=== PATIENT | female | born 1980 | race Caucasian/White ===

== ENCOUNTER 2017-07-20 13:37 | Emergency (ER) | payer OTHER ==
[~2017-07-20 13:37] MED LIST: IBUP-232 PO; PERC10TA27 PO; TAMS5CAP PO; ZOFR4TAB3 SL
[2017-07-20 14:30] VITALS: BP 129/79; PULSE 95; RESP 16; TEMP 98.6; O2SAT 97
[2017-07-20] MEDS ORDERED: MIDAZOLAM HCL 2 MG/2 ML VIAL IM ONE (15:00)
[2017-07-20 15:51] LABS: AUTOMATED NEUTROPHIL # 3.9 TH/MM3 (1.8-7.7); BASOPHIL # 0.1 TH/MM3 (0-0.2); BASOPHIL % 0.8 % (0.0-2.0); EOSINOPHIL # 0.4 TH/MM3 (0-0.4); EOSINOPHIL % 5.9 % (0.0-4.0); HEMATOCRIT 41.4 % (35.0-46.0); HEMOGLOBIN 14.2 GM/DL (11.6-15.3); LYMPH % 31.9 % (9.0-44.0); LYMPHOCYTE # 2.3 TH/MM3 (1.0-4.8); MEAN CELL VOLUME 90.9 FL (80.0-100.0); MEAN CORPUSCULAR HEMOGLOBIN 31.3 PG (27.0-34.0); MEAN CORPUSCULAR HGB CONC 34.5 % (32.0-36.0); MEAN PLATELET VOLUME 7.4 FL (7.0-11.0); MONO % 8.2 % (0.0-8.0); MONOCYTE # 0.6 TH/MM3 (0-0.9); NEUT % 53.2 % (16.0-70.0); PLATELET COUNT 277 TH/MM3 (150-450); RED BLOOD COUNT 4.55 MIL/MM3 (4.00-5.30); RED CELL DISTRIBUTION WIDTH 13.4 % (11.6-17.2); WHITE BLOOD COUNT 7.3 TH/MM3 (4.0-11.0)
[2017-07-20 16:02] LABS: AST (GOT) 11 U/L (15-37); BICARBONATE 28.6 MEQ/L (21.0-32.0); BLOOD UREA NITROGEN 8 MG/DL (7-18); CALCIUM 9.3 MG/DL (8.5-10.1); CHLORIDE 106 MEQ/L (98-107); CREATININE 0.87 MG/DL (0.50-1.00); GLOMERULAR FILTRATION RATE 74 ML/MIN (>89); GLUCOSE,RANDOM 96 MG/DL (74-106); SODIUM (NA) 141 MEQ/L (136-145)
[2017-07-20 16:07] LABS: ALKALINE PHOSPHATASE 59 U/L (45-117); ALT (GPT) 18 U/L (10-53); TOTAL BILIRUBIN ADULT 0.4 MG/DL (0.2-1.0)
[2017-07-20 16:08] LABS: BACTERIA, URINE OCC /hpf; BILIRUBIN, URINE NEG (NEG); BLOOD, URINE SMALL (NEG); GLUCOSE,URINE NEG (NEG); KETONE, URINE NEG (NEG); MUCUS URINE MANY /lpf (OCC); NITRITE,URINE NEG (NEG); SQUAMOUS EPITHELIAL CELL URINE 6 /hpf (0-5); URINE COLOR YELLOW (YELLW/STRAW); URINE LEUKOCYTE ESTERASE MOD (NEG)
--- NOTE | 2017-07-20 16:29 | PD ---
HPI Chief Complaint: Psychiatric Symptoms Time Seen by Provider: 14:41 Travel History International Travel<30 days: No Contact w/Intl Traveler<30days: No Traveled to known affect area: No History of Present Illness HPI 36-year-old female presents to the emergency department with suicidal ideations. Patient was brought in as a [place] act. Patient says she "can't take it any longer." Patient denies having a plan but she believes that her family is better off without her. Patient denies hallucinations. Patient denies fever , chills, chest pain, shortness of breath, illicit drug use. Patient denies chronic medication use. Patient has a history depression and is tried medications prior but states they do not work. Patient denies urinary symptoms , back pain. PFSH Past Medical History Diminished Hearing: No Kidney Stones: Yes Tetanus Vaccination: Never Vaccinated ?: Not : 2 Para: 2 Miscarriage: 0 : 0 Tubal Ligation: Yes Past Surgical History Genitourinary Surgery: Yes (bladder lift) Gynecologic Surgery: Yes (2 episiotomy repairs) Other Surgery: Yes (rectoplasty) Social History Alcohol Use: No (once a month) Tobacco Use: No (quit 8 years ago) Substance Use: Yes Allergies-Medications (Allergen,Severity, Reaction): Coded Allergies: No Known Allergies (Verified , 06/23/16) Reported Meds & Prescriptions Reported Meds & Active Scripts Active Zofran Odt (Ondansetron Odt) 4 Mg Tab 4 Mg SL Q6HR PRN Ibuprofen 600 Mg Tab 600 Mg PO Q6H PRN Flomax (Tamsulosin HCl) 0.4 Mg Cap 0.4 Mg PO HS 7 Days Percocet (Oxycodone-Acetaminophen) 10-325 mg Tab 1 Tab PO Q6H PRN Review of Systems Except as stated in HPI: all other systems reviewed are Neg Physical Exam Narrative GENERAL: Well-nourished, well-developed patient. Tearful SKIN: Focused skin assessment warm/dry. HEAD: Normocephalic. EYES: No scleral icterus. No injection or drainage. NECK: Supple, trachea midline. No JVD or lymphadenopathy. CARDIOVASCULAR: Regular rate and rhythm without murmurs, gallops, or rubs. RESPIRATORY: Breath sounds equal bilaterally. No accessory muscle use. GASTROINTESTINAL: Abdomen soft, non-tender, nondistended. MUSCULOSKELETAL: No cyanosis, or edema. BACK: Nontender without obvious deformity. No CVA tenderness. PSYCHIATRIC: No delusional thought processes. No hallucinations. Anxious Data Data Last Documented VS Vital Signs Date Time Temp Pulse Resp B/P (MAP) Pulse Ox O2 Delivery O2 Flow Rate FiO2 07/20/17 17:42 07/20/17 14:30 98.6 95 16 97 Room Air Orders Orders Midazolam Inj (Versed Inj) (07/20/17 15:00) Complete Blood Count With Diff (07/20/17 14:52) Comprehensive Metabolic Panel (07/20/17 14:52) Urinalysis - C+S If Indicated (07/20/17 14:52) Psych Screen (07/20/17 14:52) Drug Screen, Random Urine (07/20/17 14:52) Urine Culture (07/20/17 15:13) Labs Laboratory Tests Test 07/20/17 15:10 12 15:13 White Blood Count 7.3 TH/MM3 Red Blood Count 4.55 MIL/MM3 Hemoglobin 14.2 GM/DL Hematocrit 41.4 % Mean Corpuscular Volume 90.9 FL Mean Corpuscular Hemoglobin 31.3 PG Mean Corpuscular Hemoglobin Concent 34.5 % Red Cell Distribution Width 13.4 % Platelet Count 277 TH/MM3 Mean Platelet Volume 7.4 FL Neutrophils (%) (Auto) 53.2 % Lymphocytes (%) (Auto) 31.9 % Monocytes (%) (Auto) 8.2 % Eosinophils (%) (Auto) 5.9 % Basophils (%) (Auto) 0.8 % Neutrophils # (Auto) 3.9 TH/MM3 Lymphocytes # (Auto) 2.3 TH/MM3 Monocytes # (Auto) 0.6 TH/MM3 Eosinophils # (Auto) 0.4 TH/MM3 Basophils # (Auto) 0.1 TH/MM3 CBC Comment DIFF FINAL Differential Comment Blood Urea Nitrogen 8 MG/DL Creatinine 0.87 MG/DL Random Glucose 96 MG/DL Total Protein 8.0 GM/DL Albumin 4.0 GM/DL Calcium Level 9.3 MG/DL Alkaline Phosphatase 59 U/L Aspartate Amino Transf (AST/SGOT) 11 U/L Alanine Aminotransferase (ALT/SGPT) 18 U/L Total Bilirubin 0.4 MG/DL Sodium Level 141 MEQ/L Potassium Level 3.4 MEQ/L Chloride Level 106 MEQ/L Carbon Dioxide Level 28.6 MEQ/L Anion Gap 6 MEQ/L Estimat Glomerular Filtration Rate 74 ML/MIN Urine Color YELLOW Urine Turbidity HAZY Urine pH 6.0 Urine Specific Frost 1.021 Urine Protein TRACE mg/dL Urine Glucose (UA) NEG mg/dL Urine Ketones NEG mg/dL Urine Occult Blood SMALL Urine Nitrite NEG Urine Bilirubin NEG Urine Urobilinogen LESS THAN 2.0 MG/DL Urine Leukocyte Esterase MOD Urine RBC 5 /hpf Urine WBC 11 /hpf Urine Squamous Epithelial Cells 6 /hpf Urine Bacteria OCC /hpf Urine Mucus MANY /lpf Microscopic Urinalysis Comment CULTURE INDICATED Urine Opiates Screen NEG Urine Barbiturates Screen NEG Urine Amphetamines Screen NEG Urine Benzodiazepines Screen POS Urine Cocaine Screen POS Urine Cannabinoids Screen POS MDM Medical Decision Making Medical Screen Exam Complete: Yes Emergency Medical Condition: Yes Differential Diagnosis Depression, suicidal ideations, homicidal ideations, anxiety Narrative Course 14y female with a history of Crohn's disease comes emergency Department with headache, dizziness after being hit with a softball on the left side of the head last evening. Patient states that she had a period of loss of consciousness for about 10-15 seconds and then developed dizziness when standing. Patient describes this as lightheadedness. Patient says she started playing softball this morning got lightheaded and decided to stop and come to the emergency department. Patient states that she also has photophobia, left- sided headache. Patient denies neck or back pain. Patient states her headache is constant and has not increased over time. Patient denies weakness or abnormal gait. Vital signs stable. Physical exam unremarkable. Patient is anxious and tearful. Suspected contamination on urinalysis. Multiple squamous cells. USD positive for cocaine, cannabinoids, benzos. Patient is medically cleared to see psych. Diagnosis Primary Impression: Depression Qualified Codes: F32.9 - Major depressive disorder, single episode, unspecified Condition: Stable Carla Dean Jul 20, 2017 16:29
== END 2017-07-20 18:46 ==
LOC: NEPJ 13:37
DX: F32.9 Major depressive disorder, single episode, unspecified (principal); K50.90 Crohn's disease, unspecified, without complications; R51 Headache; R42 Dizziness and giddiness; R45.851 Suicidal ideations
CPT/HCPCS: 80053; 80307; 81001; 85025; 87086; 99283